=== PATIENT | male | born 1980 | race Caucasian/White ===

== ENCOUNTER 2016-07-30 10:00 | Emergency (ER) | payer MEDICAID ==
[~2016-07-30] VITALS: Ht 180.3 cm; Wt 117.9 kg
[2016-07-30 10:17] VITALS: BP 156/94
[2016-07-30] MEDS ORDERED: ONDANSETRON HCL 4 MG/2 ML VIAL IM ONE (11:15)
[2016-07-30] MEDS ORDERED: HYDROmorphone HCL 2 MG/ML VL IM ONE (11:15)
== END 2016-07-30 11:43 | disposition home or self-care (01) ==
LOC: ER 10:00
DX: S16.1XXA Strain of muscle, fascia and tendon at neck level, initial encounter (principal); S09.90XA Unspecified injury of head, initial encounter; F17.210 Nicotine dependence, cigarettes, uncomplicated; F12.10 Cannabis abuse, uncomplicated; W19.XXXA Unspecified fall, initial encounter; Y93.21 Activity, ice skating; Y99.8 Other external cause status; Y92.89 Other specified places as the place of occurrence of the external cause
CPT/HCPCS: 70450; 72125; 96372; 99284; J1170; J2405

== ENCOUNTER 2016-08-13 10:43 | Emergency (ER) | payer MEDICAID ==
[~2016-08-13] VITALS: Ht 180.3 cm; Wt 115.7 kg
[2016-08-13 16:32] VITALS: BP 115/72
== END 2016-08-13 18:16 | disposition home or self-care (01) ==
LOC: ER 10:49
DX: G44.329 Chronic post-traumatic headache, not intractable (principal); Z76.0 Encounter for issue of repeat prescription